=== PATIENT | male | born 1970 | race Caucasian/White ===

== ENCOUNTER 2017-02-21 09:00 | Emergency (ER) | payer BC ==
[~2017-02-21] VITALS: Ht 180.3 cm; Wt 95.3 kg
--- NOTE | ~2017-02-21 | CR133 ---
[facility]. [facility] A Service of [facility] RADIOLOGY TEXT RESULTS PATIENT: SHARAD RICO LOCATION: SED : 66 UNIT #: [id number] AGE: [address]: Yudith Moses MD SEX: M ORDER DR: [id number] [place] [address] [id number] E MR#: [id number] Acc #: [id number] NAME: SHARAD RICO : 1970 SEX: M STUDY DATE/TIME: 02/21/2017 09:25 UNIT: SED ROOM: STUDY DESCRIPTION: CR Forearm 2 View Rt Attending Physician: Yudith Moses M.D. Ordering Physician: Yudith Moses M.D. Primary Care Physician: Aleida Pena M.D. MEDICAL IMAGING REPORT This report is preliminary unless electronic signature is present. EXAM Right forearm 2 views 02/21/2017 0925 hours HISTORY Patient dropped a 35 pound weight on arm last night. Pain in the mid forearm COMPARISON None. FINDINGS AP and lateral views of the radius and ulna demonstrate no fracture or dislocation. IMPRESSION Negative right forearm. Dictated by... Dasha Gimenez M.D. THIS IS AN ELECTRONICALLY VERIFIED REPORT Dasha Gimenez M.D. at 02/21/2017 8:26 PM HELENA/joey TD: 02/21/2017 15:13 JOB #: [id number] MEDICAL IMAGING REPORT Page 1 of 1
[~2017-02-21 09:00] MED LIST: PREDNISONE10 MG PO
== END 2017-02-21 09:49 | disposition home or self-care (01) ==
LOC: SED 09:00
DX: S50.11XA Contusion of right forearm, initial encounter (principal); M54.9 Dorsalgia, unspecified; Z88.0 Allergy status to penicillin; Z88.1 Allergy status to other antibiotic agents; W20.8XXA Other cause of strike by thrown, projected or falling object, initial encounter; Y92.009 Unspecified place in unspecified non-institutional (private) residence as the place of occurrence of the external cause
CPT/HCPCS: 73090; 99283